=== PATIENT | male | born 1985 | race Caucasian/White ===

== ENCOUNTER 2023-04-10 10:28 | Outpatient (CLI) | payer OTHER, SELFPAY | END 2023-04-10 10:29 | disposition home or self-care (01) | PROVIDERS: PCP Internal Medicine; Visit Provider Physician Assistant Medical | DX: Z00.00 Encounter for general adult medical examination without abnormal findings (principal); F41.9 Anxiety disorder, unspecified; K21.9 Gastro-esophageal reflux disease without esophagitis | CPT/HCPCS: 80053; 80061; 84443 ==

== ENCOUNTER 2025-10-10 08:21 | Outpatient (CLI) | payer OTHER, SELFPAY | END 2025-10-10 08:22 | disposition home or self-care (01) | LOC: NFLDREF 10-13 11:40 | PROVIDERS: PCP Internal Medicine; Referring Provider Internal Medicine; Visit Provider Internal Medicine | DX: N52.9 Male erectile dysfunction, unspecified (principal) | CPT/HCPCS: 80053; 80061 ==